=== PATIENT | female | born 1980 | race Caucasian/White ===

== ENCOUNTER → 2021-03-09 | Day surgery (SDC) | payer OTHER ==
[~2021-03-09] VITALS: Ht 165.1 cm; Wt 136.1 kg
[~2021-03-09] MED LIST: CARVEDILOL6.25 M1 PO; PRINIVIL20 MG PO; SPIRONOLACTONE100 M1 PO; TRAMADOL 50 MG50 MG PO; ZYRTEC10 M5 PO
[2021-03-09 10:34] VITALS: BP 131/83
[2021-03-09 11:58] VITALS: BP 131/83
--- NOTE | 2021-03-09 13:09 | EKG ---
[address] [address] ELECTROCARDIOGRAM REPORT Name: MEREDITH ANN Room #: [facility]#: [id number] Admission: 03/09/21 Attend Phys: Nusrat John, Discharge: Date of : 80 Report #: [id number] [facility] Test Date: 2021-03-09 Test Time: 10:21:56 Pat Name: MEREDITH ANN Department: Room: Gender: F Oxidation Operator: JEAN-PAUL : 1980 Requested By: Nusrat John Order Number: [id number] MD: Osvaldo Fall Measurements Intervals [place] Rate: 72 P: 39 UT: 179 QRS: -8 QRSD: 89 T: 8 QT: 386 QTc: 423 Interpretive Statements Sinus rhythm Left ventricular hypertrophy No previous ECG available for comparison Electronically Signed On 03-09-2021 13:09:23 PANEL MACHINE OPERATOR by Osvaldo Fall [email or web address] <ELECTRONICALLY SIGNED> By: Osvaldo Fall MD, [facility] 03/09/21 1309 1021 1021 Osvaldo Fall MD, FACC /EPI
--- NOTE | 2021-03-15 11:07 | PATH ---
[facility] [address] [place] [address] PATHOLOGY RPT PROCEDURE Name: MEREDITH ANN Room #: REG [facility] M.R.#: [id number] Admission: 03/09/21 Date of : 80 Discharge: Report #: [id number] Path Case #: [id number] [facility] Accession Number: [id number] . 01 Material submitted: . middle finger - RIGHT LONG FINGER. Modifiers: right . 01 Clinical history: . EXCISION MASS FINGER MASS . 02 Diagnosis: Soft tissue "right long finger mass", excision: - Giant cell tumor of tendon sheath; negative for malignancy. (MLK:pit; 03/14/2021) QTP 03/14/2021 0711 Local . 02 Electronically signed: . Dora Saumel MD, Pathologist NPI- [id number] . 01 Gross description: . Received in formalin labeled "Meredith Ann, right long finger" are 3 irregular, unoriented cuenca-yellow portions of soft tissue measuring in aggregate 2.4 x 1.6 x 0.6 cm. The specimen is serially sectioned to reveal cuenca-yellow cut surface. Specimen is entirely submitted in cassette A1-A2.([facility]; 03/10/2021) GZA/GZA 03/10/2021 1031 Local . 02 Pathologist provided ICD-10: D48.1 . 02 CPT . 957522 Specimen Comment: A courtesy copy of this report has been sent to [phone] Specimen Comment: [phone] Specimen Comment: Report sent to / DR GARNICA Specimen Comment: A duplicate report has been generated due to demographic updates. Performed at: 01 [facility] [address] [place] [address] [id number] MD Gabriel Ramachandran MD Phone: [phone] Performed at: [address] [id number] [place] [address] PATHOLOGY RPT PROCEDURE Name: MEREDITH ANN Room #: REG [facility] M.R.#: [id number] Admission: 03/09/21 Date of : 80 Discharge: Report #: [id number] Path Case #: [id number] MD Eris Castillo MD Phone: [phone]
--- NOTE | 2021-03-17 07:04 | O ---
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 SURGEON: Nusrat John MD TYPE OF ANESTHESIA: General mask anesthesia. ESTIMATED BLOOD LOSS: Minimal. TOURNIQUET TIME: Approximately 15 minutes. COMPLICATIONS: None. CONDITION: Stable. DISPOSITION: To recovery room. SPECIMENS: Sent to pathology. INDICATIONS: The patient is a 40-year-old female with the above-mentioned diagnosis. She elects for operative treatment. The risks, benefits, alternatives and complications were discussed including but not limited to infection, damage to vessels, nerves, incomplete relief or worsening of any symptoms and recurrence. Informed consent was obtained. The correct extremity was identified and labeled myself. DESCRIPTION OF PROCEDURE: The patient was brought to the operating room and placed in supine position. Upper extremity was sterilely prepped and draped in the usual fashion. Final timeout was taken. All concurred. The arm was elevated, exsanguinated and tourniquet inflated. The entire procedure was done through a 3.5 x loupe magnification. Next, an oblique incision was made over the mass. The borders of the mass measured approximately 3 cm. Dissection was [facility] [address] [place] [address] OPERATIVE REPORT Name: MEREDITH ANN Room #: REG [facility]#: [id number] Admission: 03/09/21 Attend Phys: Nusrat John, Discharge: Date of : 80 Report #: [id number] carried down through subcutaneous tissue with tenotomy scissor. 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 It was completely excised. It was down all the way to the periosteum and the flexor tendon sheath at the approximate level of the PIP joint. The A2 and A4 pulleys were carefully protected. Extensive examination was undertaken to ensure complete excision. The area was then thoroughly irrigated. The skin was closed with 4-0 nylon suture. The subcutaneous tissue was infiltrated with approximately 3 mL of 0.25% Marcaine at the base of the finger. She was placed in a bulky dressing. All fingers were pink with brisk capillary refill at the conclusion of case. All sponge and needle counts were correct. The patient transferred to postoperative recover room in stable condition. <ELECTRONICALLY SIGNED> By: Nusrat John MD 03/17/21 0704 1157 1259 Nusrat John MD /nt
== END | disposition home or self-care (01) ==
LOC: OR 07:49
PROVIDERS: ATTEND Orthopaedic Surgery Hand Surgery
DX: D48.1 Neoplasm of uncertain behavior of connective and other soft tissue (principal); I10 Essential (primary) hypertension; K21.9 Gastro-esophageal reflux disease without esophagitis; Z98.890 Other specified postprocedural states; Z79.899 Other long term (current) drug therapy; Z20.822 Contact with and (suspected) exposure to COVID-19; Z87.891 Personal history of nicotine dependence; Z87.442 Personal history of urinary calculi
CPT/HCPCS: 50010; 50101; 50386; 57006; 57091; 57179; 62110; 62900; 70005